=== PATIENT | female | born 1960 | race Caucasian/White ===

== ENCOUNTER 2021-02-12 06:54 | Inpatient (IN) ==
--- NOTE | 2021-02-06 08:47 | ANES ---
Anesthesia Pre Procedure Eval HOME MEDICATIONS docusate sodium 50 mg capsule 50 mg PO DAILY 09/04/20 [Last Taken Unknown] fluocinonide 0.05 % topical cream 1 applic TP BID 09/04/20 [Last Taken Unknown] glucosamine sulfate 500 mg capsule 1,000 mg PO DAILY cap 09/04/20 [Last Taken Unknown] hydrochlorothiazide 12.5 mg tablet 12.5 mg PO DAILY 09/04/20 [Last Taken Unknown] niacin 500 mg capsule,extended release 1,000 mg PO DAILY cap 09/04/20 [Last Taken Unknown] olmesartan 20 mg tablet 20 mg PO DAILY 09/04/20 [Last Taken Unknown] orphenadrine citrate 100 mg tablet,extended release 100 mg PO BID 09/04/20 [Last Taken Unknown] timolol 0.5 % eye drops 1 drp OP DAILY 09/04/20 [Last Taken Unknown] hydrocodone 5 mg-acetaminophen 325 mg tablet 1 tab PO DAILY PRN 01/25/21 [Last Taken Unknown] Allergies/Adverse Reactions: Allergies Allergy/AdvReac Type Severity Reaction Status Date / Time No Known Drug Allergies Allergy Verified 01/25/21 09:45 - Planned Procedure Planned Procedure: L Arthroplasty Total Knee Medical History (Last Reviewed 01/25/21 @ 09:44 by Staci Hernandez LPN) Osteoarthritis of knees, bilateral (Chronic) Carpal tunnel syndrome Diabetes Hypercholesteremia Hypertension Obesity Osteoarthritis Surgical History (Last Reviewed 01/25/21 @ 09:44 by Staic Hernandez LPN) H/O colonoscopy Onset Date: ~07/2019 [facility] - normal - f/u in 5 years H/O eye surgery ages 1 and 3 - cross eye [place] teeth extracted Onset Date: ~1982 Family History (Last Reviewed 01/25/21 @ 09:44 by Staci Hernandez LPN) Mother Diverticulitis Hypertension Hyperlipemia Father Cancer lung Brother Cancer prostate - Respiratory Smoking Status: Never smoker Discussed smoking cessation including day of surgery: No Sleep Apnea currently treated: No Sleep Apnea by current assessment: No Discussed Risks/Treatment of DESIREE: No - Cardiovascular Tolerate Activity: Fair - Anesthesia Assessment and Plan ASA Class: PS, III Anesthesia Type Plan: Block - Left ultrasound guided periphernal nerve block for postop analgesia, Spinal
[~2021-02-12 06:54] MED LIST: MORPHINE SULFATE 15 MG TABLET.SA PO PRN; ROPIVACAINE/CLONIDIN/KETOROLAC 50 ML SYRINGE IJ PRN; TRANEXAMIC ACID 1,000 MG in NORMAL SALINE 100 ML IV PRN; ceFAZolin SODIUM 1 GM VIAL IV PRN
[2021-02-12] MEDS ORDERED: LIDOCAINE HCL 20 ML VIAL ONE (07:21)
[2021-02-12] MEDS ORDERED: ONDANSETRON HCL/PF 2 MG/ML VIAL ONE (07:22)
[2021-02-12] MEDS ORDERED: fentaNYL CITRATE/PF 50 MCG/ML AMPUL ONE (07:22)
[2021-02-12] MEDS ORDERED: PROPOFOL VIAL IV ONE (07:22)
[2021-02-12] MEDS ORDERED: BUPIVACAINE HCL/EPINEPHRINE 50 ML VIAL ONE (07:22)
[2021-02-12] MEDS: RINGER'S SOLUTION,LACTATED 1,000 ML IV PRN ×3 (07:36→10:00)
[2021-02-12] MEDS ORDERED: ISOPROPYL ALCOHOL 480 APPL BTL MC ONE (07:48)
[2021-02-12] MEDS ORDERED: ROPIVACAINE/CLONIDIN/KETOROLAC 50 ML SYRINGE IJ ONE (07:48)
[2021-02-12] MEDS ORDERED: ceFAZolin SODIUM 1 GM VIAL ONE (07:48)
[2021-02-12] MEDS ORDERED: ONDANSETRON HCL/PF 2 MG/ML VIAL IV PRN ×2 (08:00→11:02)
[2021-02-12] MEDS ORDERED: NALOXONE HCL 0.4 MG/ML VIAL IV PRN (08:00)
[2021-02-12] MEDS ORDERED: HYDROmorphone HCL 2 MG/ML VIAL IV PRN (08:00)
[2021-02-12] MEDS ORDERED: PROCHLORPERAZINE EDISYLATE 5 MG/ML VIAL IV PRN (08:00)
[2021-02-12] MEDS ORDERED: diphenhydrAMINE HCL 50 MG/ML VIAL IV PRN ×2 (08:00→11:02)
[2021-02-12] MEDS ORDERED: MORPHINE SULFATE 2 MG/ML DISP.SYRIN IV PRN (11:02)
[2021-02-12] MEDS ORDERED: ACETAMINOPHEN 500 MG TABLET PO PRN (11:02)
[2021-02-12] MEDS ORDERED: MAGNESIUM HYDROXIDE 30 ML UDC PO PRN (11:02)
[2021-02-12] MEDS ORDERED: RINGER'S SOLUTION,LACTATED 1,000 ML IV PRN (11:02)
[2021-02-12] MEDS ORDERED: MAG HYDROX/ALUMINUM HYD/SIMETH 30 ML UDC PO PRN (11:02)
[2021-02-12] MEDS ORDERED: ZOLPIDEM TARTRATE 5 MG TABLET PO PRN (11:02)
--- NOTE | 2021-02-12 11:02 | OR ---
Operative Report - Dictated Report Narrative: Date: 02/12/2021 Preoperative diagnosis: Left knee degenerative joint disease. Postoperative diagnosis: Left knee degenerative joint disease. Procedure: Left total knee arthroplasty. (Please add a 22 modifier due to morbid obesity and significant limited range of motion resulting in increased time, complexity, and need for additional assistance in order to safely perform the procedure.) Surgeon: Griffin Mendes M.D. Tag Press Operator: Dez Lobato PA-C (provided and essential set of skilled, educated hands that assisted with transfer, positioning, prepping, draping, manipulation, retraction, placement of jigs, injection, insertion of implants, irrigation, closure wounds, and dressings all of which could not be performed by the available surgical crew) Anesthesia: Spinal with regional block and local periarticular joint injection. Complications: None Specimens: Bone. Estimated blood loss: Minimal. Tourniquet time: 100 Minutes at 350 millimeters of mercury. Retained implants: Depuy Attune size 6 left lugged cemented posterior stabilized femoral component. Size 6 fixed-bearing cemented revision tibial platform. 6 by 10 millimeter posterior stabilized cross-linked tibial insert. 41 millimeter medialized patella button. Indications: Mrs. Demarco is a 60-year-old female who has had longstanding left knee pain and arthrosis. This patient was followed in my clinic for period of time with significant complaints of left knee pain consistent with arthritic changes. She had failed conservative measures including, but not limited to, activity modification, passage of time, medications, and other conservative measures. Patient wished to proceed with surgical treatment. The risks, benefits, and alternatives were discussed in clinic. The risks of , blood clots, bleeding, infection, nerve/tendon blood vessel/ injury, malposition of components, intraoperative fracture, postoperative limited range of motion, persistent pain, failure of components, and need for additional procedures. Patient wished to proceed consent was obtained after answering all questions. Procedure: After marking the correct extremity on the floor, the patient was taken to the operating room. A timeout was performed. IV antibiotics consisting of Ancef were administered prior to the procedure. A regional followed by spinal anesthetic was induced by anesthesia, per my request, on the operative table with all bony prominences well-padded. Pate catheter was plac ed, and a bump was placed under the operative side buttock. SCDs and DAVID hose were utilized on the nonoperative leg. A well-padded tourniquet was applied to the operative thigh. The operative leg was then pre-scrubbed with alcohol, prepped, and draped in a standard sterile fashion. After exsanguinating the extremity with an Esmarch bandage, the tourniquet was inflated. After marking out the anterior knee for standard incision centered over the patella, the skin was incised and dissected down to the joint retinaculum. The joint retinaculum was marked out as well as the horizontal axis of the patella, and a standard medial parapatellar arthrotomy was then made. The most proximal aspect of the quadriceps tendon and the patella tendon insertion were protected from release. A partial synovectomy was performed as well as a resection of the infrapatellar fat pad. The distal femoral fat pad proximal to the trochlea was also resected using cautery. The soft tissues were elevated off the medial aspect of the proximal tibia using a Aguilar elevator ensuring that we did not transect the medial collateral ligament. Upon initial evaluation range of motion was approximately 5 degrees to 60 degrees of flexion. There were signs of advanced arthrosis in the medial, lateral, and patellofemoral joint spaces. There were large marginal osteophytes which were removed with a rongeur. The knee was hyperflexed and the patella was tucked laterally. Protecting the surrounding soft tissues with Homans, an entry drill was placed down the femoral canal using Whitesides line for guidance into the entry point. The intramedullary femoral alignment mauri was utilized in order to cut the distal femur in 5 degrees of valgus resecting 10 millimeters of bone. Next the distal femur was sized to a size 6. A posterior referencing guide was utilized to place the distal femoral cutting block in 3 degrees of external rotation. This was pinned into place. The rotation was confirmed both visually and based on anatomic landmarks. The 4 in 1 cutting jig of the appropriate size was utilized in order to make all bony cuts. The robert wing was used to ensure no notching. Retractors were utilized in order to protect surrounding soft tissues. This cut did not result in any excessive notching. We then cut the box centered over the distal femur. This allowed for resection of the anterior and posterior cruciate ligaments. I then turned my attention to the preparation of the tibia. Using an extra medullary tibial alignment mauri, 2 millimeters of bone was resected off the medial articular surface. This was made perpendicular to the mechanical axis of the joint with the alignment mauri centered over the ankle mortise. The alignment mauri was checked and was noted to be parallel to the mec hanical axis, centered over the medial one third of the tibial tubercle, paralleling the anterior surface of the tibia. We then turned our attention to the remaining meniscus and soft tissues. These were removed while protecting the surrounding ligaments and soft tissues. The marginal osteophytes off the anterior, posterior, medial, lateral aspects of the femur and tibia were removed. The tibia was sized out to a size 6. Next the tibia was drilled and punched in an externally rotated position. Next the trial femur and a series of tibial inserts were utilized in order to allow for full extension and maximal flexion. It was found that a 10 millimeter insert gave the best range of motion and stability at multiple flexion points as well as at full extension there was less than 2 mm of gapping both medially and laterally. There is minimal anterior translation with the knee at 90 degrees of flexion and no signs of being able to dislocate the knee. The patella was then prepared. The initial thickness was 23 millimeters. This was reamed down to 13 millimeters parallel to the anterior surface of the patella. It was sized out to a size 41 medialized patella button. This was then drilled and trialed. Without any medial restraint the patella tracked appropriately and did not sublux or dislocate. At this point, it was felt these were the appropriate sized implants, and all tr ials were removed. The standard periarticular joint injection consisting of ropivacaine, Toradol, and epinephrine were injected into the periarticular joint tissues. The bony surfaces were thoroughly irrigated with a pulsatile-suction saline irrigation device. A bone plug from the prior resected anterior chamfer cut was placed into the drill hole at the distal femur. The bony surfaces were then dried in preparation for placement of the implants. The cement was vacuum mixed per the fine unhairer's instructions. The cement was placed on the dry bony surfaces and posterior aspect of the implants. The implants were impacted into place, removing all extruded cement. At this point anesthesia administered tranexamic acid per protocol intravenously. The knee was placed in extension with axial loading with the trial insert while the cement cured. Once the cement cured, all remaining extruded cement was removed. The knee was placed through a range of motion with the trial insert to ensure appropriate range of motion and stability. Final range of motion was approximately 0 to 100 degrees. The knee was again thoroughly irrigated with pulsatile saline lavage. The final polyethylene insert was then impacted into place ensuring no retained soft tissues. The remaining periarticular joint injection was injected. A medium Hemovac drain was placed exiting superior laterally. The knee was then placed over a triangle and the arthrotomy was closed with interrupted #1 Vicryl after thoroughly irrigating the joint. The deep and subcutaneous tissues were closed with interrupted 0 and 3-0 Vicryl respectively. Skin was closed with a running subcutaneous 3-0 Monocryl and dann. Xeroform, 4 x 4's, Sof-Rol, and a full leg Pj wrap were applied. All sponge, needle, blade, and instrument counts were correct prior to closing the wounds. Postoperative condition: The patient was awoken and transferred to the postanesthesia care unit in stable condition. Plan is to be admitted to the inpatient medical/surgical floor postoperatively for 24 hours of IV antibiotics, physical therapy, occupational therapy, and medical comanagement. Patient will be weightbearing as tolerated with range of motion as tolerated. DVT prophylaxis will be with SCDs, DAVID hose, and pharmacological anticoagulation. Anticipated hospital stay is approximately 1-3 days.
[2021-02-12] MEDS ORDERED: FLUOCINONIDE 15 APPL TUBE TP PRN (11:04)
--- NOTE | 2021-02-12 11:31 | ANES ---
Post Anesthesia Discharge - Transfer of Care Transfer of Care handoff given to nurse: Yes - Discharge from PACU Discharge from PACU when meets criteria: Yes - Discharge to ASU Discharge to ASU-no complications/pt stable: Yes
--- NOTE | 2021-02-12 11:32 | ANES ---
Anesthesia Procedure Note Procedure Note: ANESTHESIA PROCEDURE NOTE Date of Procedure: 02/12/2021. Time of procedure: 0850. Performed by: Alfie Thomas CRNA Paper Rewinder: None. Preprocedure diagnosis: Left knee degenerative joint disease. Post procedure diagnosis: Same. Procedure: Left ultrasound guided adductor canal block for postoperative analgesia. Indications: The patient is a 60-year-old female, requesting left ultrasound- guided abductor canal nerve block for postoperative analgesia related to left total knee arthroplasty. Findings: See below. Details of the procedure: The tissue over the intended target site was cleansed with ChloraPrepand draped in a sterile fashion. 2 ml Lidocaine 1 % was infiltrated to the skin and subcutaneous tissue at the intended target site. Under sterile technique and ultrasound guidance a 20-gauge block needle was inserted through the left sartorius muscle to the saphenous nerve just anterior and medial to the superficial femoral artery and vein. 15 mL's of 0.5% bupivacaine plus epinephrine 1:200,000 was injected after negative aspiration for blood. Needle tip and spread of local anesthetic surrounding the saphenous nerve was observed throughout the injection with real time ultrasound visualization. The needle was then removed intact. No complications were noted. The images were retained in the Hospital medical database. EBL: Minimal. Fluids: N/A. Specimen: N/A. Post procedure condition: The patient tolerated the procedure well. No complications were noted. Thank you for this consultation. Alfie Thomas CRNA
[2021-02-12] MEDS: ceFAZolin SODIUM 1 GM in DEXTROSE 5 % IN WATER 100 ML IV SCH ×4 (12:19→19:10)
[2021-02-12] MEDS: KETOROLAC TROMETHAMINE 15 MG/ML VIAL IV SCH ×3 (12:20→23:05)
[2021-02-12] MEDS: oxyCODONE HCL/ACETAMINOPHEN 1 TAB TABLET PO PRN ×2 (13:23→17:41)
--- NOTE | 2021-02-12 13:39 | ANES ---
Post Anesthesia Assessment - Vital Signs Vitals: Last Vital Signs Temp 37.0 C 02/12/21 12:00 Pulse 73 02/12/21 12:00 Resp 16 02/12/21 12:00 BP 124/74 02/12/21 12:00 Pulse Ox 100 02/12/21 12:00 Airway Patency: Normal - Mental Status Level Of Consciousness: Awake - Pain Level Pain Score: 0 - N/V Assessment Nausea/Vomiting Presence: None Dehydration:: No
[2021-02-12] MEDS ORDERED: DOCUSATE SODIUM 100 MG CAPSULE PO SCH (21:00)
[2021-02-12] MEDS ORDERED: NIACIN 500 MG TABLET.SA PO SCH (21:00)
[2021-02-12] MEDS ORDERED: ORPHENADRINE CITRATE 100 MG TABLET.SA PO SCH (21:00)
[2021-02-12] MEDS ORDERED: SENNOSIDES/DOCUSATE SODIUM 1 TAB TABLET PO SCH (21:00)
[2021-02-12] MEDS ORDERED: MORPHINE SULFATE 15 MG TABLET.SA PO SCH (21:00)
[2021-02-13] MEDS: ceFAZolin SODIUM 1 GM in DEXTROSE 5 % IN WATER 100 ML IV SCH ×2 (01:19)
[2021-02-13] MEDS: KETOROLAC TROMETHAMINE 15 MG/ML VIAL IV SCH (05:16)
[2021-02-13] MEDS: oxyCODONE HCL/ACETAMINOPHEN 1 TAB TABLET PO PRN ×2 (05:18→13:53)
[2021-02-13 06:48] LABS: Hematocrit 32.9 % (37.0-47.0); Hemoglobin 10.9 gm/dL (12.5-16.0); Mean Cell Volume 97.1 fl (78-100); Mean Corpuscular Hemoglobin 32.2 pg (27-31); Mean Corpuscular Hgb Conc 33.1 g/dl (32-36); Mean Platelet Volume 8.5 fl (8-12.5); Platelet Count 210 K/mm3 (150-450); Red Blood Count 3.39 M/mm3 (4.2-5.4); White Blood Count 10.4 K/mm3 (4.0-10.5)
[2021-02-13 07:02] LABS: Anion Gap 9.6 mmol/L (6.8-13.8); BUN/Creatinine Ratio 20.4 (9.0-21.6); Calcium * 8.6 mg/dL (7.9-10.9); Carbon Dioxide 29.5 mmol/L (24-32.6); Estimated Creat Clear 42.3; Potassium 4.1 mmol/L (3.4-4.6)
[2021-02-13] MEDS ORDERED: LOSARTAN POTASSIUM 50 MG TABLET PO SCH (09:00)
[2021-02-13] MEDS ORDERED: CHOLECALCIFEROL 1,000 UNIT CAPSULE PO SCH (09:00)
[2021-02-13] MEDS ORDERED: TIMOLOL MALEATE 50 DROP BTL OP SCH (09:00)
[2021-02-13] MEDS ORDERED: HYDROCHLOROTHIAZIDE 12.5 MG CAPSULE PO SCH (09:00)
[2021-02-13] MEDS ORDERED: ENOXAPARIN SODIUM 40 MG/0.4 ML SYRG SC SCH (10:02)
--- NOTE | 2021-02-13 11:17 | DS ---
(1) Status post left knee replacement Problem: Acute Date of Discharge:: 02/13/21 Hospital Course: Mrs. Demarco was admitted to the floor after undergoing left total knee arthroplasty. Tolerated this well. Was admitted to the floor postoperatively for 24 hours of IV antibiotics, pain control, medical comanagement, and occupational and physical therapy. OT and PT were consulted to assist with activities of daily living and ambulation. Was made weightbearing as tolerated with range of motion as tolerated. Pain was initially controlled with IV regimen. This was transitioned to oral once tolerating a by mouth intake. Was resumed on home diet and medications. Had a Pate catheter inserted and the operating room which was discontinued on postoperative day 1. A drain was placed intraoperatively into the knee which was discontinued on postoperative day 1. Lovenox SCD and DAVID hose were utilized for DVT prophylaxis. Vital signs remained stable to the hospital course. Serial labs were obtained which showed a final hemoglobin of 10.9 grams. BMP was reviewed and was stable. Physical examination throughout the hospital course showed an extremity that had sensation that was intact to light touch, palpable pulses, a benign wound, motor intact to the toes, ankle, and knee. Knee range of motion was approximately 5 degrees to 70 degrees. Once an oral pain regimen was tolerated and physical therapy goals were met, it was felt that they were stable for discharge to home. Instructions: Continue with weightbearing as tolerated and range of motion as tolerated. Keep wound clean and dry and covered. If you note any drainage or for comfort you can cover with dry gauze and tape. Change every 2-3 days as needed. Continue with physical therapy. Resume home diet. Report any fever over 101.5 Fahrenheit, uncontrolled pain, increased drainage, foul odor of drainage, new or increased calf pain or shortness of breath, or any other significant complaints. A 325mg dialy aspirin will be started after finishing anticoagulation if not allergic. Continue with DAVID hose on the operative extremity until instructed otherwise. No driving until instructed otherwise. Follow up in approximately 10-14 days. Procedures Performed: see notes below List Procedures: Left total knee arthroplasty Results and Findings: Lab Pending Results 02/13/21 06:27: WBC 10.4, RBC 3.39 L, Hgb 10.9 L, Hct 32.9 L, MCV 97.1, MCH 32.2 H, MCHC 33.1, RDW 13.0, Plt Count 210, MPV 8.5 02/13/21 06:27: Sodium 130 L, Plasma Sodium 130, Potassium 4.1, Chloride 95 L, Carbon Dioxide 29.5, Anion Gap 9.6, BUN 22, Creatinine 1.08, Est GFR (Non-Af Amer) 55 L, BUN/Creatinine Ratio 20.4, Random Glucose 120 H, Calcium 8.6 Discharge Location: Home Disposition: Home self-care Condition: Good Discharge Activity: Activity as tolerated, Weight bearing, Other - With wheeled walker Discharge Diet: Low salt, Low fat/chol Referrals: Katerin Fagan APRN [Primary Care Provider] - Additional Patient Instructions (free text): Physical Therapy appointment at [facility] in [place] on ThursdayFebruary 15 at 12:30pm. Professor Criminal Justice please fax PT order to #[phone]. Follow up [facility] Orthopedic office visit on ThursdayMarch 06 at 9:00am. Prescriptions (Any new or edited meds): Enoxaparin Sodium [Lovenox] 40 mg SC Q24H #7 disp.syrin Transmission Status: Pending to [email or web address] #[id number] Morphine Sulfate [Ms Contin] 15 mg PO Q12H #14 tablet.sa Transmission Status: Received by [email or web address] #[id number] oxyCODONE HCL/ACETAMINOPHEN [Percocet 5 MG/325 MG] 2 tab PO Q4H PRN #56 tab PRN Reason: Moderate Pain (Pain Scale 4-6) Transmission Status: Sent to [email or web address] #[id number] Sennosides/Docusate Sodium [Senokot-S] 2 tab PO HS #30 tab Transmission Status: Pending to [email or web address] #[id number] Ondansetron HCl [Zofran] 4 mg PO Q4H PRN #30 tab PRN Reason: Nausea Transmission Status: Pending to [email or web address] #[id number] Complete Home Medications List: Complete Home Medication List: docusate sodium 50 mg capsule 100 mg PO HS 09/04/20 fluocinonide 0.05 % topical cream 1 applic TP BID PRN 09/04/20 glucosamine sulfate 500 mg capsule 1,000 mg PO DAILY cap 09/04/20 hydrochlorothiazide 12.5 mg tablet 12.5 mg PO DAILY 09/04/20 niacin 500 mg capsule,extended release 1,500 mg PO HS cap 09/04/20 olmesartan 20 mg tablet 20 mg PO DAILY 09/04/20 orphenadrine citrate 100 mg tablet,extended release 100 mg PO BID 09/04/20 timolol 0.5 % eye drops 1 drp OP DAILY 09/04/20 hydrocodone 5 mg-acetaminophen 325 mg tablet 1 tab PO Q6H PRN 01/25/21 Cholecalciferol (Vitamin D3) [Vitamin D3] 50 mcg PO DAILY 02/06/21 Glucosam/Chond/Hyalu/Cf Borate [Move Free Joint Health Tablet] 1 ea PO DAILY 02/06/21 Enoxaparin Sodium [Lovenox] 40 mg SC Q24H #7 disp.syrin 02/13/21 Morphine Sulfate [Ms Contin] 15 mg PO Q12H #14 tablet.sa 02/13/21 Ondansetron HCl [Zofran] 4 mg PO Q4H PRN #30 tab 02/13/21 Sennosides/Docusate Sodium [Senokot-S] 2 tab PO HS #30 tab 02/13/21 oxyCODONE HCL/ACETAMINOPHEN [Percocet 5 MG/325 MG] 2 tab PO Q4H PRN #56 tab 02/13/21 Amb Orders for Discharge: PT Evaluation and Treatment* Facility: [facility], Location: Rehabilitation Services Forms: Patient Portal Registration
[2021-02-13 15:49] VITALS: BP 125/62
== END 2021-02-13 17:00 | disposition home or self-care (01) | DRG 470 ==
LOC: MS 06:54 → EDSTATUS 09:00
PROVIDERS: ADMIT Orthopaedic Surgery; ATTEND Orthopaedic Surgery
DX: E66.01 Morbid (severe) obesity due to excess calories; M17.12 Unilateral primary osteoarthritis, left knee; E78.00 Pure hypercholesterolemia, unspecified; Z68.43 Body mass index [BMI] 50.0-59.9, adult; I12.9 Hypertensive chronic kidney disease with stage 1 through stage 4 chronic kidney disease, or unspecified chronic kidney disease; N18.30 Chronic kidney disease, stage 3 unspecified; E11.22 Type 2 diabetes mellitus with diabetic chronic kidney disease

== ENCOUNTER 2021-04-23 06:29 | Inpatient (IN) ==
[~2021-04-23 06:29] MED LIST changes: +RINGER'S SOLUTION,LACTATED 1,000 ML IV PRN; -TRANEXAMIC ACID 1,000 MG in NORMAL SALINE 100 ML IV PRN; +TRANEXAMIC ACID IN NACL,ISO-OS 1,000 MG/100 ML BAG IV PRN
[2021-04-23] MEDS ORDERED: BUPIVACAINE HCL/EPINEPHRINE 50 ML VIAL ONE (06:46)
[2021-04-23] MEDS ORDERED: PROPOFOL VIAL IV ONE (06:47)
[2021-04-23] MEDS ORDERED: MIDAZOLAM HCL/PF 5 MG/ML VIAL ONE (06:47)
[2021-04-23] MEDS ORDERED: ONDANSETRON HCL/PF 2 MG/ML VIAL ONE (06:47)
[2021-04-23] MEDS ORDERED: ISOPROPYL ALCOHOL 480 APPL BTL MC ONE (07:05)
[2021-04-23] MEDS ORDERED: ROPIVACAINE/CLONIDIN/KETOROLAC 50 ML SYRINGE IJ ONE (07:05)
[2021-04-23] MEDS ORDERED: ceFAZolin SODIUM 1 GM VIAL ONE (07:05)
--- NOTE | 2021-04-23 07:16 | ANES ---
Anesthesia Pre Procedure Eval Vitals/Labs: Last Vital Signs Temp 36.7 C 04/23/21 06:30 Pulse 74 04/23/21 06:30 Resp 14 04/23/21 06:30 BP 129/52 04/23/21 06:30 HOME MEDICATIONS docusate sodium 50 mg capsule 100 mg PO HS 09/04/20 [Last Taken Unknown] fluocinonide 0.05 % topical cream 1 applic TP BID PRN 09/04/20 [Last Taken Unknown] glucosamine sulfate 500 mg capsule 1,000 mg PO DAILY cap 09/04/20 [Last Taken Unknown] hydrochlorothiazide 12.5 mg tablet 12.5 mg PO DAILY 09/04/20 [Last Taken 0 04/23/21 05:00] niacin 500 mg capsule,extended release 1,500 mg PO HS cap 09/04/20 [Last Taken Unknown] olmesartan 20 mg tablet 20 mg PO DAILY 09/04/20 [Last Taken 04/23/21 05:00] orphenadrine citrate 100 mg tablet,extended release 100 mg PO BID 09/04/20 [Last Taken Unknown] timolol 0.5 % eye drops 1 drp OP DAILY 09/04/20 [Last Taken Unknown] Cholecalciferol (Vitamin D3) [Vitamin D3] 50 mcg PO DAILY 02/06/21 [Last Taken Unknown] Glucosam/Chond/Hyalu/Cf Borate [Move Free Joint Health Tablet] 1 ea PO DAILY 02/06/21 [Last Taken Unknown] hydrocodone 5 mg-acetaminophen 325 mg tablet 1 tab PO Q8H PRN #30 tab 02/25/21 [Last Taken Unknown] Allergies/Adverse Reactions: Allergies Allergy/AdvReac Type Severity Reaction Status Date / Time No Known Drug Allergies Allergy Verified 04/09/21 09:54 - Planned Procedure Planned Procedure: Arthroplasty RT Total Knee Medication List Reviewed:: Yes Allergies Verified: Yes Medical History (Last Reviewed 04/23/21 @ 07:15 by Stefan Durbin CRNA) Osteoarthritis of knees, bilateral (Chronic) COVID-[email or web address] Carpal tunnel syndrome right Diabetes patient states controlled without meds Hypercholesteremia Hypertension Obesity Osteoarthritis Surgical History (Last Reviewed 04/23/21 @ 07:15 by Stefan Durbin CRNA) History of total left knee replacement Onset Date: 02/12/21 Left Total Knee Arthroplasty- Dr. Mendes- 02/12/21 H/O colonoscopy Onset Date: ~07/2019 [facility] - normal - f/u in 5 years H/O eye surgery ages 1 and 3 - cross eye [place] teeth extracted Onset Date: ~1982 Family History (Last Reviewed 04/23/21 @ 07:15 by Stefan Durbin CRNA) Mother Diverticulitis Hyperlipemia Hypertension Father Cancer lung Brother Cancer prostate, lung Brother Alive and well - Family Anesthesia History Family History:: no untoward family reactions to anesthesia, no familial bleeding tendencies, no family history of clotting disorders, no family history of premature - Airway/Neck/Teeth Within Normal Limits:: Yes Teeth Condition: intact Neck Exam: full range of motion Mallampatti Score: 3 Thyromental (T-M) distance: > 6 cm Mandibulo Hyoid distance: > 3 cm - Respiratory Respiratory Physical: lungs clear Smoking Status: Never smoker Sleep Apnea currently treated: No Sleep Apnea by current assessment: No - some symptoms but not definitive - Cardiovascular Cardiac History: hypertension Tolerate Activity: Fair Heart Sounds: S1 & S2, Regular - Gastrointestinal NPO since: 2400 - Anesthesia Assessment and Plan ASA Class: PS, III Anesthesia Type Plan: Block - adductor canal for post op pain relief, Spinal
[2021-04-23] MEDS ORDERED: ONDANSETRON HCL/PF 2 MG/ML VIAL IV PRN (11:08)
[2021-04-23] MEDS ORDERED: ACETAMINOPHEN 500 MG TABLET PO PRN (11:08)
[2021-04-23] MEDS ORDERED: MAG HYDROX/ALUMINUM HYD/SIMETH 30 ML UDC PO PRN (11:08)
[2021-04-23] MEDS ORDERED: diphenhydrAMINE HCL 50 MG/ML VIAL IV PRN (11:08)
[2021-04-23] MEDS ORDERED: MAGNESIUM HYDROXIDE 30 ML UDC PO PRN (11:08)
[2021-04-23] MEDS ORDERED: DEXTROSE 5%-LACTATED RINGERS 1,000 ML IV PRN (11:08)
[2021-04-23] MEDS ORDERED: ZOLPIDEM TARTRATE 5 MG TABLET PO PRN (11:08)
--- NOTE | 2021-04-23 11:08 | OR ---
Operative Report - Dictated Report Narrative: Date: 04/23/2021 Preoperative diagnosis: Right knee degenerative joint disease. Postoperative diagnosis: Right knee degenerative joint disease. Procedure: Right total knee arthroplasty. (22 modifier due to significant difficulty added due to morbid obesity, limited range of motion, requiring increased surgical time, risk, and need for additional assistance) Surgeon: Griffin Mendes M.D. Sack Filler: Dez Lobato PA-C (provided and essential set of skilled, educated prince nds that assisted with transfer, positioning, prepping, draping, manipulation, retraction, placement of jigs, injection, insertion of implants, irrigation, closure wounds, and dressings all of which could not be performed by the available surgical crew) Anesthesia: Spinal with regional block and local periarticular joint injection. Complications: None Specimens: Bone. Estimated blood loss: Minimal. Tourniquet time: 100 minutes at 350 millimeters of mercury. Retained implants: Depuy Attune size 6 right lugged cemented posterior stabilized femoral component. Size 6 fixed-bearing cemented revision tibial platform. 6 by 5 millimeter posterior stabilized cross-linked tibial insert. 41 millimeter medialized patella button. Indications: Mrs. Demarco is a 60-year-old female who has had longstanding right knee pain and arthrosis. This patient was followed in my clinic for period of time with significant complaints of right knee pain consistent with arthritic changes. She had failed conservative measures including, but not limited to, activity modification, passage of time, medications, and other conservative measures. Patient wished to proceed with surgical treatment. The risks, benefits, and alternatives were discussed in clinic. The risks of , blood clots, bleeding, infection, nerve/tendon blood vessel/ injury, malposition of components, intraoperative fracture, postoperative limited range of motion, persistent pain, failure of components, and need for additional procedures. Patient wished to proceed consent was obtained after answering all questions. Procedure: After marking the correct extremity on the floor, the patient was taken to the operating room. A timeout was performed. IV antibiotics consisting of Ancef were administered prior to the procedure. A regional followed by spinal anesthetic was induced by anesthesia, per my request, on the operative table with all bony prominences well-padded. Pate catheter was placed, and a bump was placed under the operative side buttock. SCDs and DAVID hose were utilized on the nonoperative leg. A well-padded tourniquet was applied to the operative thigh. The operative leg was then pre-scrubbed with al cohol, prepped, and draped in a standard sterile fashion. After exsanguinating the extremity with an Esmarch bandage, the tourniquet was inflated. After marking out the anterior knee for standard incision centered over the patella, the skin was incised and dissected down to the joint retinaculum. The joint retinaculum was marked out as well as the horizontal axis of the patella, and a standard medial parapatellar arthrotomy was then made. The most proximal aspect of the quadriceps tendon and the patella tendon insertion were protected from release. A partial synovectomy was performed as well as a resection of the infrapatellar fat pad. The distal femoral fat pad proximal to the trochlea was also resected using cautery. The soft tissues were elevated off the medial aspect of the proximal tibia using a Aguilar elevator ensuring that we did not transect the medial collateral ligament. Upon initial evaluation range of motion was approximately 5 degrees to 90 degrees of flexion. There were signs of advanced arthrosis in the medial, lateral, and patellofemoral joint spaces. There were large marginal osteophytes which were removed with a rongeur. The knee was hyperflexed and the patella was tucked laterally. Protecting the surrounding soft tissues with Homans, an entry drill was placed down the femoral canal using Whitesides line for guidance into the entry point. The intram edullary femoral alignment mauri was utilized in order to cut the distal femur in 5 degrees of valgus resecting 10 millimeters of bone. Next the distal femur was sized to a size 6. A posterior referencing guide was utilized to place the distal femoral cutting block in 3 degrees of external rotation. This was pinned into place. The rotation was confirmed both visually and based on anatomic landmarks. The 4 in 1 cutting jig of the appropriate size was utilized in order to make all bony cuts. The robert wing was used to ensure no notching. Retractors were utilized in order to protect surrounding soft tissues. This cut did not result in any excessive notching. We then cut the box centered over the distal femur. This allowed for resection of the anterior and posterior cruciate ligaments. I then turned my attention to the preparation of the tibia. Using an extra medullary tibial alignment mauri, 2 millimeters of bone was resected off the medial articular surface. This was made perpendicular to the mechanical axis of the joint with the alignment mauri centered over the ankle mortise. The alignment mauri was checked and was noted to be parallel to the mechanical axis, centered over the medial one third of the tibial tubercle, paralleling the anterior surface of the tibia. We then turned our attention to the remaining meniscus and soft tissues. These were removed while protecting the surrounding ligaments and soft tissues. The marginal osteophytes off the anterior, posterior, medial, lateral aspects of the femur and tibia were removed. The tibia was sized out to a size 6. Next the tibia was drilled and punched in an externally rotated position. Next the trial femur and a series of tibial inserts were utilized in order to allow for full extension and maximal flexion. It was found that a 5 millimeter insert gave the best range of motion and stability at multiple flexion points as well as at full extension there was less than 2 mm of gapping both medially and laterally. There is minimal anterior translation with the knee at 90 degrees of flexion and no signs of being able to dislocate the knee. The patella was then prepared. The initial thickness was 26 millimeters. This was reamed down to 16 millimeters parallel to the anterior surface of the patella. It was sized out to a size 41 medialized patella button. This was then drilled and trialed. Without any medial restraint the patella tracked appropriately and did not sublux or dislocate. At this point, it was felt these were the appropriate sized implants, and all trials were removed. The standard periarticular joint injection consisting of ropivacaine, Toradol, and epinephrine were injected into the periarticular joint tissues. The bony surfaces were thoroughly irrigated with a pulsatile-suction saline irrigation device. A bone plug from the prior resected anterior chamfer cut was placed into the drill hole at the distal femur. The bony surfaces were then dried in preparation for placement of the implants. The cement was vacuum mixed per the heel reducer's instructions. The cement was placed on the dry bony surfaces and posterior aspect of the implants. The implants were impacted into place, removing all extruded cement. At this point anesthesia administered tranexamic acid per protocol intravenously. The knee was placed in extension with axial loading with the trial insert while the cement cured. Once the cement cured, all remaining extruded cement was removed. The knee was placed through a range of motion with the trial insert to ensure appropriate range of motion and stability. Final range of motion was approximately 0 to 110 degrees. The knee was again thoroughly irrigated with pulsatile saline lavage. The final polyethylene insert was then impacted into place ensuring no retained soft tissues. The remaining periarticular joint injection was injected. A medium Hemovac drain was placed exiting superior laterally. The knee was then placed over a triangle and the arthrotomy was closed with interrupted #1 Vicryl after thoroughly irrigating the joint. The deep and subcutaneous tissues were closed with interrupted 0 and 3-0 Vicryl respectively. Skin was closed with a running subcutaneous 3-0 Monocryl and dann. Xeroform, 4 x 4's, Sof-Rol, and a full leg Pj wrap were applied. All sponge, needle, blade, and instrument counts were correct prior to closing the wounds. Postoperative condition: The patient was awoken and transferred to the postanesthesia care unit in stable condition. Plan is to be admitted to the inpatient medical/surgical floor postoperatively for 24 hours of IV antibiotics, physical therapy, occupational therapy, and medical comanagement. Patient will be weightbearing as tolerated with range of motion as tolerated. DVT prophylaxis will be with SCDs, DAVID hose, and pharmacological anticoagulation. Anticipated hospital stay is approximately 1-3 days.
--- NOTE | 2021-04-23 11:30 | ANES ---
Anesthesia Procedure Note Procedure Note: ANESTHESIA PROCEDURE NOTE Date of Procedure: 04/23/2021 Time of procedure: 9 AM. Performed by: CASEY Barraza CRNA, MSN Program Associate: Lloyd Kuo RN. Preprocedure diagnosis: Post right total knee arthroplasty pain. Post procedure diagnosis: Same. Procedure: Right adductor Canal Block. Indications: Post right total knee arthroplasty pain relief. Findings: See below. Details of the procedure: The patient was brought to OR #4 and placed in supine position. The patient's right femoral area to the knee was prepped with chlorhexidine and using ultrasound guidance the right femoral artery and nerve was identified and then followed to the level of the adductor canal. Under ultrasound guidance the saphenous nerve was approached with visualization of a 2 inch shielded block needle. Once saphenous nerve was identified with proximity to the needle tip, the saphenous nerve was surrounded with 30 mL bupivacaine 0.5% with 1-200,000 epinephrine. Please see radiology/ultrasound report for details and retained images of the procedure. EBL: 0 Fluids: N/A. Specimen: N/A. Post procedure condition: The patient tolerated the procedure well. No complications were noted. Thank you for this consultation. Stefan Durbin CRNA, ARNP, MSN
--- NOTE | 2021-04-23 11:30 | ANES ---
Post Anesthesia Discharge - Transfer of Care Transfer of Care handoff given to nurse: Yes - Discharge from PACU Discharge from PACU when meets criteria: Yes - Alert, comfortable
[2021-04-23] MEDS ORDERED: MORPHINE SULFATE 4 MG/ML SYRG ONE (11:50)
[2021-04-23] MEDS: MORPHINE SULFATE 2 MG/ML DISP.SYRIN IV PRN ×2 (11:54→12:10)
--- NOTE | 2021-04-23 12:40 | ANES ---
Post Anesthesia Assessment - Vital Signs Vitals: Last Vital Signs Temp 36.5 C 04/23/21 12:26 Pulse 65 04/23/21 12:26 Resp 12 04/23/21 12:15 BP 117/59 04/23/21 12:26 Pulse Ox 98 04/23/21 12:26 Airway Patency: Normal - Mental Status Level Of Consciousness: Awake, Alert, Appropriate - Pain Level Pain Score: 8 - N/V Assessment Nausea/Vomiting Presence: None Dehydration:: No
[2021-04-23] MEDS: KETOROLAC TROMETHAMINE 15 MG/ML VIAL IV SCH ×3 (12:51→22:59)
[2021-04-23] MEDS: ceFAZolin SODIUM 1 GM in DEXTROSE 5 % IN WATER 100 ML IV SCH ×4 (12:53→19:51)
[2021-04-23] MEDS: oxyCODONE HCL/ACETAMINOPHEN 1 TAB TABLET PO PRN ×2 (13:22→17:32)
[2021-04-23] MEDS: ORPHENADRINE CITRATE 100 MG TABLET.SA PO SCH (20:24)
[2021-04-23] MEDS: MORPHINE SULFATE 15 MG TABLET.SA PO SCH (20:24)
[2021-04-23] MEDS ORDERED: DOCUSATE SODIUM 100 MG CAPSULE PO SCH (21:00)
[2021-04-23] MEDS ORDERED: SENNOSIDES/DOCUSATE SODIUM 1 TAB TABLET PO SCH (21:00)
[2021-04-23] MEDS ORDERED: NIACIN 500 MG TABLET.SA PO SCH (21:00)
[2021-04-24] MEDS: ceFAZolin SODIUM 1 GM in DEXTROSE 5 % IN WATER 100 ML IV SCH ×2 (01:02)
[2021-04-24] MEDS: oxyCODONE HCL/ACETAMINOPHEN 1 TAB TABLET PO PRN ×2 (04:06→13:00)
[2021-04-24] MEDS: KETOROLAC TROMETHAMINE 15 MG/ML VIAL IV SCH ×2 (05:11→11:18)
[2021-04-24 06:34] LABS: Hematocrit 33.6 % (37.0-47.0); Hemoglobin 10.7 gm/dL (12.5-16.0); Mean Cell Volume 97.4 fl (78-100); Mean Corpuscular Hgb Conc 31.8 g/dl (32-36); Mean Platelet Volume 8.5 fl (8-12.5); Platelet Count 200 K/mm3 (150-450); Red Blood Count 3.45 M/mm3 (4.2-5.4); Red Cell Distribution Width 12.9 % (11.5-14.0); White Blood Count 6.3 K/mm3 (4.0-10.5)
[2021-04-24 06:40] LABS: BUN/Creatinine Ratio 19.4 (9.0-21.6); Calcium * 8.5 mg/dL (7.9-10.9); Carbon Dioxide 28.2 mmol/L (24-32.6); Estimated Creat Clear 36.9; Potassium 4.2 mmol/L (3.4-4.6)
[2021-04-24] MEDS: MORPHINE SULFATE 15 MG TABLET.SA PO SCH (08:41)
[2021-04-24] MEDS: ORPHENADRINE CITRATE 100 MG TABLET.SA PO SCH (08:42)
[2021-04-24] MEDS ORDERED: LOSARTAN POTASSIUM 50 MG TABLET PO SCH (09:00)
[2021-04-24] MEDS ORDERED: TIMOLOL MALEATE 50 DROP BTL OP SCH (09:00)
[2021-04-24] MEDS ORDERED: CHOLECALCIFEROL 1,000 UNIT CAPSULE PO SCH (09:00)
[2021-04-24] MEDS ORDERED: HYDROCHLOROTHIAZIDE 12.5 MG CAPSULE PO SCH (09:00)
[2021-04-24] MEDS ORDERED: ENOXAPARIN SODIUM 40 MG/0.4 ML SYRG SC SCH (10:08)
--- NOTE | 2021-04-24 13:56 | DS ---
(1) Status post right knee replacement Problem: Acute Date of Discharge:: 04/24/21 Hospital Course: 60-year-old female was admitted postoperatively status post right total knee arthroplasty. Patient has had relatively uncomplicated stay in the hospital. She was admitted for pain control, postoperative complications, continued monitoring, PT/OT goals. Patient is also returned to the p.o. diet without significant complication. Patient's pain is well controlled p.o. pain medication. She has been seen met all goals with PT/OT. Exam today patient reveals right lower extremity--> incision without erythema or drainage, dann in place, sensation intact light touch, distal capillary refill brisk, 5/5 plantar flexion dorsiflexion ankle, diffuse mild tenderness, mild postoperative edema. Patient will continue with following recommendations: -Weightbearing as tolerated, assistive device as needed -PT/OT progress per protocol -P.o. diet as tolerated -P.o. pain medication as needed -DVT prophylaxis: Lovenox for 7 days followed by twice daily aspirin 81 mg for 6 weeks -Maintain compression DAVID hose bilateral lower extremities -Dressings Xeroform, 4 x 4's, Pj bandage or Medipore tape change as needed maintain clean and dry -Disposition: Discharge home with self-care, outpatient physical therapy, follow-up at the orthopedic outpatient clinic Procedures Performed: see notes below List Procedures: Status post right total knee arthroplasty Results and Findings: Lab Pending Results 04/24/21 06:29: WBC 6.3, RBC 3.45 L, Hgb 10.7 L, Hct 33.6 L, MCV 97.4, MCH 31.0, MCHC 31.8 L, RDW 12.9, Plt Count 200, MPV 8.5 04/24/21 06:29: Sodium 133, Plasma Sodium 133, Potassium 4.2, Chloride 98, Carbon Dioxide 28.2, Anion Gap 11.0, BUN 24 H, Creatinine 1.24, Est GFR (Non-Af Amer) 47 L, BUN/Creatinine Ratio 19.4, Random Glucose 131 H, Calcium 8.5 Discharge Location: Home Disposition: Home self-care Condition: Stable Discharge Activity: Activity as tolerated, Weight bearing - As tolerated with assistive device Discharge Diet: General/regular food Referrals: Katerin Fagan APRN [Primary Care Provider] - Problem Oriented Discharge Instructions to Patient/Family: Total Knee Rep lacement, Care After, [id number] Print Language (Cypriot or Belarusian Available): Cypriot Additional Patient Instructions (free text): Physical Therapy at [facility] on ThursdayApril 26 at 1:15pm. Please fax PT orders to fax # [phone] Follow up [facility] Orthopedic office appointment on ThursdayMay 13 at 2:15pm. Prescriptions (Any new or edited meds): Enoxaparin Sodium [Lovenox] 40 mg SC Q24H #6 disp.syrin Transmission Status: Pending to [facility] #[id number] Morphine Sulfate [Ms Contin] 15 mg PO Q12H #14 tablet.sa Transmission Status: Received by [facility] #[id number] oxyCODONE HCL/ACETAMINOPHEN [Percocet 5 MG/325 MG] 1 - 2 tab PO Q4H PRN #50 tab PRN Reason: Moderate Pain (Pain Scale 4-6) Transmission Status: Received by [facility] #[id number] Sennosides/Docusate Sodium [Senokot-S] 2 tab PO HS #60 tab Transmission Status: Pending to [facility] #[id number] Complete Home Medications List: Complete Home Medication List: docusate sodium 50 mg capsule 100 mg PO HS 09/04/20 fluocinonide 0.05 % topical cream 1 applic TP BID PRN 09/04/20 glucosamine sulfate 500 mg capsule 1,000 mg PO DAILY cap 09/04/20 hydrochlorothiazide 12.5 mg tablet 12.5 mg PO DAILY 09/04/20 niacin 500 mg capsule,extended release 1,500 mg PO HS cap 09/04/20 olmesartan 20 mg tablet 20 mg PO DAILY 09/04/20 orphenadrine citrate 100 mg tablet,extended release 100 mg PO BID 09/04/20 timolol 0.5 % eye drops 1 drp OP DAILY 09/04/20 Cholecalciferol (Vitamin D3) [Vitamin D3] 50 mcg PO DAILY 02/06/21 Glucosam/Chond/Hyalu/Cf Borate [Move Free Joint Health Tablet] 1 ea PO DAILY 02/06/21 hydrocodone 5 mg-acetaminophen 325 mg tablet 1 tab PO Q8H PRN #30 tab 02/25/21 Enoxaparin Sodium [Lovenox] 40 mg SC Q24H #6 disp.syrin 04/24/21 Morphine Sulfate [Ms Contin] 15 mg PO Q12H #14 tablet.sa 04/24/21 Sennosides/Docusate Sodium [Senokot-S] 2 tab PO HS #60 tab 04/24/21 oxyCODONE HCL/ACETAMINOPHEN [Percocet 5 MG/325 MG] 1 - 2 tab PO Q4H PRN #50 tab 04/24/21 Amb Orders for Discharge: PT Evaluation and Treatment* Location: None Selected Forms: Patient Portal Registration
[2021-04-24 15:11] VITALS: BP 98/59
== END 2021-04-24 15:33 | disposition home or self-care (01) | DRG 470 ==
LOC: MS 06:29 → EDSTATUS 08:00
PROVIDERS: ADMIT Orthopaedic Surgery; ATTEND Orthopaedic Surgery
DX: I10 Essential (primary) hypertension; E11.9 Type 2 diabetes mellitus without complications; Z96.651 Presence of right artificial knee joint; M17.0 Bilateral primary osteoarthritis of knee